=== PATIENT | female | born 1990 | race Caucasian/White ===

== ENCOUNTER 2018-01-18 13:39 | Emergency (ER) | payer BC ==
[~2018-01-18] VITALS: Ht 165.1 cm; Wt 91.3 kg
[2018-01-18 15:15] LABS: HEMATOCRIT 36.6 % (36.0-46.0); HEMOGLOBIN 12.9 G/DL (11.9-15.5); MCH 32.1 PG (29.0-34.0); MCHC 35.2 G/DL (30.0-36.0); PLATELET COUNT 280 K/uL (156-360); RBC DIS.WIDTH-CV 15.7 % (11.8-14.6); RBC DIS.WIDTH-SD 52.6 % (39-53); RED BLOOD COUNT 4.02 M/uL (3.80-5.20); WHITE BLOOD COUNT 12.1 K/uL (4.1-10.2)
[2018-01-18 15:27] LABS: CHLORIDE 106 mEq/L (99-109); POTASSIUM 3.9 mEq/L (3.7-5.4); SODIUM 137 mEq/L (136-147)
[2018-01-18 15:28] LABS: GLUCOSE 82 mg/dL (70-99)
[2018-01-18 15:32] LABS: CREATININE 0.7 mg/dL (0.6-1.3)
[2018-01-18 15:33] LABS: GFR ESTIMATE (CALCULATED) > 59 mL/min/; UREA NITROGEN (BUN) 6 mg/dL (9-23)
[2018-01-18 16:00] LABS: QUANTITATIVE HCG 55600.3 MIU/ML
[2018-01-18 16:47] LABS: APPEARANCE SL.HAZY ((CLEAR)); BILIRUBIN NEGATIVE; BLOOD SMALL; COLOR YELLOW ((YELLOW)); GLUCOSE (STRIP) NEGATIVE; KETONES 80; LEUKOCYTES SMALL; NITRITE NEGATIVE; PROTEIN (STRIP) 30; SPECIFIC GRAVITY 1.017 (1.000-1.030); UROBILINOGEN 0.2 MG/DL (0.2-1.0)
[2018-01-18 16:51] LABS: BACTERIA RARE /HPF; EPITHELIAL CELLS 3+ /HPF; MUCUS 1+ /LPF; RED BLOOD CELLS 0-5 /HPF (0-5)
[2018-01-18 17:17] VITALS: BP 135/91
== END 2018-01-18 17:18 | disposition home or self-care (01) ==
LOC: EME 13:39
PROVIDERS: Nurse Practitioner Family; Physician Assistant
DX: O20.0 Threatened abortion (principal); Z3A.12 12 weeks gestation of pregnancy; Z87.891 Personal history of nicotine dependence
CPT/HCPCS: 76801; 80048; 81003; 84702; 85027; 86900; 86901; 99281; 99283

== ENCOUNTER 2018-02-06 16:40 | Emergency (ER) | payer BC ==
[~2018-02-06] VITALS: Ht 165.1 cm; Wt 90.9 kg
[2018-02-06 17:22] LABS: HEMATOCRIT 33.7 % (36.0-46.0); MCH 32.4 PG (29.0-34.0); MCHC 35.6 G/DL (30.0-36.0); MCV 91.1 FL (83-99); PLATELET COUNT 278 K/uL (156-360); RBC DIS.WIDTH-CV 15.9 % (11.8-14.6); RBC DIS.WIDTH-SD 52.3 % (39-53); WHITE BLOOD COUNT 14.2 K/uL (4.1-10.2)
[2018-02-06 17:57] LABS: ALBUMIN 4.2 g/dL (3.2-4.8); CHLORIDE 108 mEq/L (99-109); POTASSIUM 3.9 mEq/L (3.7-5.4); SODIUM 139 mEq/L (136-147)
[2018-02-06 17:59] LABS: GLUCOSE 90 mg/dL (70-99); TOTAL PROTEIN 7.1 g/dL (6.4-8.3)
[2018-02-06 18:00] LABS: APPEARANCE SL.HAZY ((CLEAR)); BILIRUBIN NEGATIVE; BLOOD MODERATE; COLOR AMBER ((YELLOW)); GLUCOSE (STRIP) NEGATIVE; KETONES NEGATIVE; LEUKOCYTES SMALL; NITRITE NEGATIVE; PROTEIN (STRIP) 30
[2018-02-06 18:01] LABS: TOTAL BILIRUBIN 1.1 mg/dL (0.0-1.0)
[2018-02-06 18:03] LABS: ALKALINE PHOSPHATASE 46 IU/L (3-129); CREATININE 0.7 mg/dL (0.6-1.3); GFR ESTIMATE (CALCULATED) > 59 mL/min/
[2018-02-06 18:04] LABS: UREA NITROGEN (BUN) 7 mg/dL (9-23)
[2018-02-06 18:05] LABS: AST (GOT) 14 IU/L (2-34)
[2018-02-06 18:06] LABS: ALT (GPT) 11 IU/L (3-49)
[2018-02-06 18:10] LABS: QUANTITATIVE HCG 32525.5 MIU/ML
[2018-02-06 18:22] LABS: BACTERIA RARE /HPF; CALCIUM OXALATE CRYSTALS 3+ /HPF; EPITHELIAL CELLS 1+ /HPF; MUCUS 3+ /LPF; RED BLOOD CELLS 0-5 /HPF (0-5); UCUL ADDED? NO; WHITE BLOOD CELLS 0-5 /HPF (0-5)
[2018-02-06 20:04] VITALS: BP 135/79
== END 2018-02-06 20:05 | disposition home or self-care (01) ==
LOC: EME 16:40
DX: O20.0 Threatened abortion (principal); Z3A.14 14 weeks gestation of pregnancy; Z87.891 Personal history of nicotine dependence
CPT/HCPCS: 76805; 80053; 81003; 84702; 85027; 86900; 86901; 99281; 99284